=== PATIENT | male | born 1955 | race African-American/Black ===

== ENCOUNTER → 2024-02-24 | Outpatient (CLI) | payer MEDICARE, SELFPAY ==
--- NOTE | 2024-02-24 08:30 | PET_ITS ---
EXAMINATION: PSMA-Pylarify PET-CT INDICATIONS: A 68-year-old male with a history of primary prostate carcinoma presenting for restaging examination. COMPARISON: None available. INDEX LESION SIZE SUV PROMISE SCORE INTERPRETATION Prostate bed, anterior to the urinary bladder 10.7 mm 20.22 3 Fulfills quantitative criteria for viable neoplasm. TECHNIQUE: Following the intravenous administration of 9.73 mCi of PSMA-Pylarify via the left hand, image acquisitions of the head, neck, chest, abdomen and pelvis to the level of the mid thigh at 73 minutes post-tracer distribution reveal: The examination was interpreted using the EANM (Laurent et al., Journal of Nuclear Medicine Molecular Imaging 44:1622, 2017) and PROMISE (Brennon et al., Journal of Nuclear Medicine 59:469, 2018) interpretive criteria. HEIGHT: 69 inches. WEIGHT: 175 lbs. PSMA expression score PROMISE criteria: High (3): SUV ? parotid-salivary gland, intermediate (2): SUV ? liver, low (1): > blood pool, < liver, (0): < blood pool. SUV reference values: Parotid glands: 16.9 Normal liver parenchyma: 6.7 Blood pool: 1.9 FINDINGS: Head/Neck: Symmetric radiopharmaceutical concentration is defined in the bilateral parotid-submandibular glands, physiologic uptake in the nasal cavity. There is no evidence of abnormal increased radiotracer uptake within the context of the cranial vault. CHEST: There is no evidence of abnormal increased radiopharmaceutical within the context of the bilateral hemithorax pulmonary parenchyma, mediastinal structures and right-left thoracic perihilum. Pertinent chest CT findings are as follows. Atherosclerotic calcification is defined in the thoracic aorta without evidence of dilatation, aneurysm formation. Coronary arterial calcification is observed. Bilateral axillary soft tissue densities demonstrate no evidence of increased tracer uptake. Scattered mediastinal soft tissue densities define no evidence of increased radiopharmaceutical concentration. There are no parenchymal densities-nodules demonstrated in the right-left hemithorax with increased tracer uptake. Abdomen/Pelvis: A focus of increased radiopharmaceutical concentration is noted in the lower pelvis anterior to the urinary bladder in the prostate bed. The calculated maximum standard uptake value is 20.22. The maximum axial diameter of the metabolic, morphologic abnormality is 10.7 mm. The PROMISE score is 3. There is physiologic tracer uptake noted in the hepatic and splenic parenchyma, the bilateral renal units, the urinary bladder, and visualized intestinal tract. The abdomen and pelvis CT findings are as follows. The gallbladder is surgically absent. There is atherosclerotic calcification defined in the abdominal aorta without evidence of dilatation-aneurysm formation. Pelvic arterial calcification is observed. Stent placement is defined in the left external iliac artery. Left and right inguinal soft tissue densities are ametabolic. Calcified phlebolith formation is noted in the bilateral lower hemipelvis. The prostate gland appears absent. Skeletal: Degenerative changes defined in the cervical, thoracic and lumbar spine demonstrate no evidence of glucose hypermetabolism. PET/PET/CT Tumor Base -Thigh Subs IMPRESSION: 1. ABNORMAL EXAMINATION INDICATIVE OF MALIGNANT-VIABLE NEOPLASM. 2. Increased radiopharmaceutical concentration defined in the prostate bed anterior to the urinary bladder fulfills quantitative criteria for malignant transformation. 3. No other quantitatively significant hypermetabolic abnormalities are noted. Electronic Signature Saul Robles D.O. Accurate Quantification of SUVs and standardized PROMISE scores for this report are calculated using the exclusive [employer], ([place] Patent No. [phone] [id number] [phone] [phone] [place] patent [id number] [phone] ). Standardization and correction of the FDG SUV metric exclusively available with [employer] intellectual property, allow for vendor non-specific objective quantitative sequential FDG PET-CT comparison and otherwise unobtainable optimization of the sensitivity and specificity of the examination. [email or web address] Electronically Signed: Saul Robles DO at 8:31 EDT ,
== END | disposition home or self-care (01) ==
PROVIDERS: PCP Family Medicine; Referring Provider Urology; Visit Provider Urology
DX: C61 Malignant neoplasm of prostate (principal); R97.21 Rising PSA following treatment for malignant neoplasm of prostate; N52.9 Male erectile dysfunction, unspecified
CPT/HCPCS: 78815; A9595

== ENCOUNTER → 2024-03-22 | Outpatient (CLI) | payer MEDICARE, SELFPAY ==
--- NOTE | 2024-03-22 13:46 | MRI_ITS ---
STUDY: MR PELVIS WITH T WITHOUT CONTRAST REASON FOR EXAM: Male, 68 years old. eval for local disease in pelvis -- prior prostate cancer removed. now recurrence TECHNIQUE: Standardized fat and water weighted pulse sequences were obtained in all 3 orthogonal planes, pre-and post contrast administration. 17CC CLARISCAN was administered for the contrast portion of the examination. COMPARISON: Prior study dated: 02/24/2024 FINDINGS: Circumferential bladder wall thickening most likely secondary to postradiation changes. Normal visualized small intestine. Normal visualized colon. Patient is status post prostatectomy. There is no pelvic fluid. There is no pelvic mass lesion or lymphadenopathy. Normal visualized pelvic arteries. Normal osseous structures. Normal abdominal wall. MRI/Pelvis W/WO Contrast IMPRESSION: Extremely limited examination due to lack of DWI/ADC sequences, T2 small [id number] sequences and only single phase, single plane postcontrast sequence. Despite limitations: No evidence of recurrent or metastatic disease in the pelvis. No obvious T2 hypointense or enhancing lesion seen at area of interest when comparing to recent PET/CT 02/24/2024. Consider short term follow up multiparametric prostate MRI w/ and w/out contrast. Circumferential bladder wall thickening most likely secondary to postradiation changes. Electronically Signed: Jermaine Kay MD at 0:00 EDT ,
[2024-03-22 14:08] LABS: CREATININE FINGERSTICK < 1.0 mg/dL (0.70-1.30); EGFR FINGERSTICK > 60.0000 mL/min (>60)
== END | disposition home or self-care (01) ==
LOC: MRI 13:20
PROVIDERS: PCP Family Medicine; Referring Provider Student in an Organized Health Care Education/Training Program; Visit Provider Student in an Organized Health Care Education/Training Program
DX: C61 Malignant neoplasm of prostate (principal)
CPT/HCPCS: 72197; A9575